=== PATIENT | female | born 1960 | race Caucasian/White ===

== ENCOUNTER 2024-04-01 07:09 | Emergency (ER) | payer OTHER, SELFPAY ==
[2024-04-01 07:22] VITALS: BP 199/113; PULSE 74; TEMP 36.7; O2SAT 96; BMI 31.6
[2024-04-01 07:31] VITALS: BP 178/108
--- NOTE | 2024-04-01 07:40 | ED.GENADUL1 ---
HPI HPI - General Adult General Chief complaint: Extremity Problem, Nontraumatic Stated complaint: LOWER EXTREMITY PAIN, LEFT Time Seen by Provider: 04/01/24 07:17 Source: patient Mode of arrival: Wheelchair Limitations: no limitations History of Present Illness HPI narrative: Patient presenting to the emergency department for evaluation of left lower extremity pain. Patient states that for the last 3 she has not had pain in the left lower extremity. 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 Patient states that if she does she can feel the left outer thigh starts to go numb, tingling. She has pain from her butt cheek all the way down to the ankle on the left side. States that she has been having it for the last 3 weeks. For the last 2 or 3 nights been uncomfortable while she has been trying to go to sleep. Call to make an appointment with her PCP, cannot be seen until 26. They told her that she could call at 830 today trying to be seen by might have an appointment today. Patient states the pain was so bad overnight she was unable to wait. Patient states she is not having any bowel or bladder incontinence, no perianal or saddle anesthesia. No weakness, normal rectal tone, no incontinence of urine or stool. No weakness. Just pain radiating down her leg no calf pain or tenderness, no calf swelling. No immobility, cancer. No other complaints at this time Related Data Home Medications ?Medication ?Instructions ?Recorded ?Confirmed atorvastatin 20 mg tablet 20 mg PO DAILY 04/01/24 04/01/24 chlorthalidone 25 mg tablet 25 mg PO DAILY 04/01/24 04/01/24 losartan 25 mg tablet 25 mg PO DAILY 04/01/24 04/01/24 Previous Rx's ?Medication ?Instructions ?Recorded cyclobenzaprine 10 mg tablet 10 mg PO TID PRN muscle spasm #14 04/01/24 tabs methylprednisolone 4 mg tablets in 4 mg PO DAILY #21 ea 04/01/24 a dose pack (Methylpred DP) naproxen 500 mg tablet 500 mg PO Q12H PRN pain #20 tabs 04/01/24 Allergies Allergy/AdvReac Type Severity Reaction Status Date / Time Penicillins AdvReac Intermediate Nausea Verified 04/01/24 07:22 Opioid HPI Opioid Management Most Recent Opioid Data: Last Pain Scale 10 04/01/24 07:51 04/01/24 Last ED Pain Assessment 04/01/24 07:36 Last MAR Pain Assessment 04/01/24 07:51 Review of Systems ROS Narrative Unless otherwise stated in the HPI Exam Narrative Exam Narrative: General: NAD, AAOx3, no distress Neuro: Left lower lumbar back pain, no midline pain or tenderness, positive EHL bilaterally, 5 out of 5 strength and normal sensation to all extremities, normal rectal tone reported, no perianal anesthesia, no saddle anesthesia, speech is clear and appropriate. Normal level of consciousness. Gait and coordination are normal. 5/5 strength in all extremities. Constitutional Vital Signs, click to edit/add: Last Vital Signs Temp 98.1 F 04/01/24 07:22 Pulse 74 04/01/24 07:22 Resp 18 04/01/24 07:22 BP 178/108 H 04/01/24 07:31 Pulse Ox 96 04/01/24 07:22 O2 Del Method Room Air 04/01/24 07:22 Course Vital Signs Vital signs: Vital Signs Temperature 98.1 F 04/01/24 07:22 Pulse Rate 74 04/01/24 07:22 Respiratory Rate 18 04/01/24 07:22 Blood Pressure 199/113 H 04/01/24 07:22 Pulse Oximetry 96 04/01/24 07:22 Oxygen Delivery Method Room Air 04/01/24 07:22 Temperature 98.1 F 04/01/24 07:22 Pulse Rate 74 04/01/24 07:22 Respiratory Rate 18 04/01/24 07:22 Blood Pressure 178/108 H 04/01/24 07:31 Pulse Oximetry 96 04/01/24 07:22 Oxygen Delivery Method Room Air 04/01/24 07:22 Medical Decision Making [facility] Narrative Medical decision making narrative: Pt who presents with low back pain without signs of spinal cord compression, cauda equina syndrome, infection, aneurysm, or other serious etiology. The patient is neurologically intact. Xray imaging not indicated. Given the extremely low risk of these diagnoses further testing and evaluation for these possibilities does not appear to be indicated at this time. The patient has been instructed to return if the symptoms worsen or change in any way. Positive EHL bilaterally Advanced guidance has been given. Vss, pex is benign at this time. Pt to fu with pcp 1-2 days for reeval, rter should sx worsen, persist or become worrysome in any way. Pt expressed understanding and agreement with plan of care at this time. Will fu as planned. Pt stable for discharge. Discharge Plan Discharge Chief Complaint: Extremity Problem, Nontraumatic Clinical Impression: Sciatic leg pain Patient Disposition: Home, Self-Care Time of Disposition Decision: 08:22 Condition: Good Prescriptions / Home Meds: New cyclobenzaprine 10 mg tablet 10 mg PO TID PRN (Reason: muscle spasm) Qty: 14 0RF naproxen 500 mg tablet 500 mg PO Q12H PRN (Reason: pain) Qty: 20 0RF methylprednisolone [Methylpred DP] 4 mg tablets,dose pack 4 mg PO DAILY Qty: 21 0RF Rx Instructions: Take pack per packet instructions No Action losartan 25 mg tablet 25 mg PO DAILY atorvastatin 20 mg tablet 20 mg PO DAILY chlorthalidone 25 mg tablet 25 mg PO DAILY Rx Instructions: take 1/2 tablet daily Print Language: Polish Instructions: Sciatica (ED) Additional Instructions: Follow-up with your PCP in the next 1 to 2 days. Return to the emergency department should symptoms worsen or become worrisome in any way.
[2024-04-01] MEDS: METHYLPREDNISOLONE SOD SUCC PF 125 MG/2 ML VIAL IM (07:50)
[2024-04-01] MEDS: KETOROLAC TROMETHAMINE 30 MG/ML VIAL 15 MG IM (07:51)
[2024-04-01] MEDS: CYCLOBENZAPRINE HCL 10 MG TABLET PO (07:51)
[2024-04-01 08:30] VITALS: BP 150/101; PULSE 76; O2SAT 97
== END 2024-04-01 08:36 | disposition home or self-care (01) ==
PROVIDERS: Emergency Provider Emergency Medicine
DX: M54.32 Sciatica, left side (principal)
CPT/HCPCS: 96372; 99284; J1885; J2919